=== PATIENT | female | born 1955 | race Caucasian/White ===

== ENCOUNTER 2016-05-11 04:46 | Emergency (ER) | payer OTHER ==
[~2016-05-11] VITALS: Ht 165.1 cm; Wt 50.9 kg
[~2016-05-11 04:46] MED LIST: ALBU18HF INH; ALBU2.5V4 INHALATION; FLUT12AE8 IH; suboxone
[2016-05-11 04:53] VITALS: BP 131/79; PULSE 83; RESP 16; O2SAT 99
[2016-05-11] MEDS ORDERED: Albuterol 2.5 mg/3 mL Inhalation Solution NEB ONE (05:15)
[2016-05-11] MEDS ORDERED: Albuterol-Ipratropium 3 mL Inhalation Solution NEB ONE (05:15)
[2016-05-11 05:31] VITALS: PULSE 72; RESP 18
--- NOTE | 2016-05-11 05:56 | ED.REPORT ---
HPI-General Illness Date of Service May 11, 2016 ED Provider: Ej Pires MD 60 year old female with a history of COPD and IV drug use who presents to the ER with a worsening productive cough with green/brown sputum for a few days. Pt reports intermittent SOB and palpitations for the last few months following a recent diagnosis and treatment of pneumonia. Pt reports slight fever. Pt denies vomiting and diarrhea. Pt is a IV heroin user and also complains of wounds to bilat lower extremities at injection sites. Her last use was a few hours ago. Pt has previously been clean for 3 years, but relapsed in the last year. She would like to be started on Suboxone treatment again. Nursing Notes Stated Complaint: COUGH, L LEG WOUND Chief Complaint: Respiratory Complaints Nursing Notes Reviewed: Yes Allergies: Coded Allergies: No Known Allergies (Verified Allergy, Unknown, 12/18/13) Scheduled ([suboxone]) 8 MG DAILY Buprenorphine HCl/Naloxone HCl (Suboxone 8 mg-2 mg Sl Film) 1 Each Film 2 EACH SL DAILY Fluticasone Propionate (Flovent HFA 110 mcg) 12 Gm Aer.w.adap 1 PUFF IH BID Levofloxacin (Levofloxacin) 750 Mg Tablet 750 MG PO DAILY Scheduled PRN Albuterol Neb Soln (Albuterol Neb Soln) 2.5 Mg/3 Ml Vial.neb 2.5 MG INHALATION Q4H PRN PRN For Shortness of Breath Albuterol Sulfate (Ventolin HFA Inhaler) 200 Puff/18 Gm Inhaler 2 PUFF INH Q4 PRN PRN For Wheezing General Time Seen by MD: 05:55 Chief Complaint Cough Hx Obtained From: Patient Arrived By: Walk-in Sudden in Onset?: No Onset Occurred: 2 days ago Symptom Duration: Since onset Severity: Current: No pain currently Associated with: Reports: Cough, Fever, Shortness of breath Pertinent Negative: Relieved by nothing Similar Sx Previous: Yes Past Medical History Past Medical History Notes: PCP Pamela Lim H/O IV drug use on suboxone H/O migraines Chronic Bronchitis Hep C H/O endocarditis TB Past Medical History Denies: Diabetes mellitus, Hypertension Past Surgical History Reports: Tonsillectomy Smoking History Current Every Day Smoker, Heavy Tobacco Smoker Social History Drug Use: IV drugs Ambulatory Status Independent Review of Systems Full Review of Systems Constitutional: Reports: Fever Respiratory: Reports: Prod cough, brown, Prod cough, green, Shortness of breath Cardiovascular: Reports: Palpitations GI: Denies: Abdominal pain, Vomiting Musculoskeletal: Reports: Extremity pain Skin: Reports Rash Complete sys rev & neg: except as marked. Physical Exam Vital Signs Vital Signs Date Time Temp Pulse Resp B/P Pulse Ox O2 Delivery O2 Flow Rate FiO2 05/11/16 06:48 36.4 55 18 126/60 96 Room Air 05/11/16 05:31 72 18 Room Air 05/11/16 04:53 36.3 83 16 131/79 99 Room Air Initial VS: Reviewed, Vital signs normal General/Constitutional: Well-developed, Well-nourished Head / Eyes: Atraumatic, Normocephalic, PERRL ENT: Conjunctiva normal, No scleral icterus Neck: Full range of motion Cardiovascular: Regular rate & rhythm, Heart sounds normal, Intact distal pulses Abdomen / GI: Soft, Non-tender, No guarding, No rebound, No distention Skin: Warm, Dry Neurologic: Alert, Oriented, Nonfocal Psychiatric: Mood/affect normal, Behavior normal, Normal thought content Respiratory / Chest: No respiratory distress, No rales Scattered rhonchi Lower Extremity / Pelvis / MS: Neurologic intact, Vascular intact Multiple small scattered firm erythematous follicular areas. No abscess. Interpretation & Diagnostics X-Ray Chest Interpretation View: AP & lat Interpretation / Wet Read by: Wet read ED physician NL X-Ray Chest Findings: No acute disease Re-Eval/Medical Decision Time of Eval: 06:18 Re-Evaluation/Progress Note: Discussed plan for discharge and follow up. All questions addressed. Counseled Regarding: Diagnosis, Need for follow-up, When/why to return to ED Discharge & Departure Primary Impression: Pneumonia Pneumonia type: due to unspecified organism Laterality: bilateral Lung location: lower lobe of lung Qualified Code: J18.9 - Pneumonia, unspecified organism Additional Impression: Folliculitis Disposition: Home Discharge Condition All VS Reviewed: Yes Condition: Improved Patient Instructions: Buprenorphine/Naloxone (By mouth), Community-acquired Pneumonia (ED), Folliculitis (ED) Additional Instructions: You can take Levaquin as directed for pneumonia. You were given the first dose while in the ER. You can take the second dose tomorrow morning. You can also take the Suboxone for heroin withdrawal. Do not take this today! Take this daily for 4 days starting on Friday. Call [facility] on Friday morning to schedule a follow up, . Return to the ER if worse. Referrals: Pamela Lim [facility] Scribe Attestation Portions of this note were transcribed by Betzaida Pelaez. I, (Dr. Pires) personally performed the history, physical exam and medical decision-making; I reviewed and confirmed the accuracy of the information in the transcribed note. Signed by: Betzaida Pelaez. Salbador, 05/11/2016, 0615 copies to: Pamela Lim Kirk H MD May 11, 2016 05:56 Betzaida Pelaez May 11, 2016 06:14
[2016-05-11] MEDS ORDERED: levoFLOXacin 750 mg Tablet PO ONE (06:20)
[2016-05-11] MEDS ORDERED: BUPR1FIL3 SL (06:25)
[2016-05-11] MEDS ORDERED: LEVO750T39 PO (06:25)
[2016-05-11 06:48] VITALS: BP 126/60; PULSE 55; RESP 18; O2SAT 96
--- NOTE | 2016-05-11 09:05 | DRSVH ---
PROCEDURE: X-RAY CHEST, TWO VIEWS ([id number]) INDICATIONS: cough TECHNIQUE: 2 views of the chest were acquired. COMPARISON: [facility], CR, CHEST 2VW, 05/24/2013, 17:22. FINDINGS: Surgical changes and devices: None. Lungs and pleura: No pleural effusions or pneumothorax. Lungs are clear. Lungs are hyperinflated jenkins ggesting COPD; please correlate with clinical data. Mediastinum: Mediastinal contours are normal. Heart size is normal. Bones and chest wall: No suspicious bony abnormalities. Soft tissues appear unremarkable. IMPRESSION: No acute cardiopulmonary disease process. Dictated by: Genoveva Hannon MD, PhD on 05/11/2016 at 9:03 Approved by: Genoveva Hannon MD, PhD on 05/11/2016 at 9:04
== END 2016-05-11 06:49 | disposition home or self-care (01) ==
LOC: SED 04:53
DX: J18.9 Pneumonia, unspecified organism (principal); L73.9 Follicular disorder, unspecified; F17.200 Nicotine dependence, unspecified, uncomplicated
CPT/HCPCS: 71020; 94640; 99284; J7613; J7620

== ENCOUNTER 2016-08-29 22:43 | Emergency (ER) | payer OTHER ==
[~2016-08-29] VITALS: Ht 165.1 cm; Wt 52.3 kg
[~2016-08-29 22:43] MED LIST changes: +BUPR1FIL3 SL; +LEVO750T39 PO
[2016-08-29 22:48] VITALS: BP 126/63; PULSE 71; RESP 18; O2SAT 96
--- NOTE | 2016-08-29 23:02 | ED.REPORT ---
HPI-General Illness Date of Service Aug 29, 2016 ED Provider: Jostin Scott MD Pt is a 61 y/o female w/ a hx of COPD, chronic bronchitis, every-day smoking, heroin abuse previously on Suboxone, Hep C, presenting to the ED for medical clearance to go to a drug rehab facility. The patient was checking in to a heroin rehab facility ([facility]) today and her oxygen saturation was read as 87% on room air and she was therefore sent to the ED to be medically cleared prior to treatment. Oxygen saturation at time of arrival is 96% on RA. The patient had pneumonia a couple months ago and feels like she hasn't gotten much better but also didn't finish her course of antibiotics. She also is out of all of her prescriptions. She has been using heroin for about 1 year now. Pt denies any significant dyspnea, current abscess, fever, chills, nausea, vomiting, any pain. Nursing Notes Stated Complaint: LOW OXYGEN Chief Complaint: Respiratory Complaints Nursing Notes Reviewed: Yes Allergies: Coded Allergies: No Known Allergies (Verified Allergy, Unknown, 08/29/16) Scheduled ([suboxone]) 8 MG DAILY Buprenorphine HCl/Naloxone HCl (Suboxone 8 mg-2 mg Sl Film) 1 Each Film 2 EACH SL DAILY Buprenorphine HCl/Naloxone HCl (Suboxone 8 mg-2 mg Sl Film) 1 Each Film 1 EACH SL DAILY Fluticasone Propionate (Flovent HFA 110 mcg) 12 Gm Aer.w.adap 1 PUFF IH BID Fluticasone Propionate (Flovent HFA 110 mcg) 12 Gm Aer.w.adap 1 PUFF IH BID Levofloxacin (Levofloxacin) 750 Mg Tablet 750 MG PO DAILY Prednisone (PredniSONE) 20 Mg Tablet 20 MG PO TID Scheduled PRN Albuterol Neb Soln (Albuterol Neb Soln) 2.5 Mg/3 Ml Vial.neb 2.5 MG INHALATION Q4H PRN PRN For Shortness of Breath Albuterol Sulfate (Ventolin HFA Inhaler) 200 Puff/18 Gm Inhaler 2 PUFF INH Q4 PRN PRN For Wheezing General Time Seen by MD: 23:00 Chief Complaint Other (clearance) Hx Obtained From: Patient Arrived By: Walk-in Sudden in Onset?: No Onset Occurred: Onset unknown Symptom Duration: Since onset Severity: Current: No pain currently Severity: Maximum: No pain Similar Sx Previous: Yes Past Medical History Past Medical History Notes: PCP Pamela Lim Past Medical History Hx TB (treated with INH in 2006) Hepatitis C Hepatitis B Hx migraines Hx endocarditis COPD Chronic bronchitis Chronic cough Anxiety Depression Heroin abuse previously on suboxone Past Surgical History Tonsillectomy Colonoscopy Smoking History Current Every Day Smoker, Heavy Tobacco Smoker Social History IV heroin abuse previously on Suboxone Alcohol Use: Denies alcohol use Drug Use: IV drugs Ambulatory Status Independent Review of Systems Full Review of Systems Constitutional: Denies: Chills, Fever Respiratory: Denies: Non-productive cough, Shortness of breath Cardiovascular: Denies: Chest pain, Dyspnea on exertion GI: Denies: Abdominal pain, Nausea, Vomiting Complete sys rev & neg: except as marked. Physical Exam Vital Signs Vital Signs Date Time Temp Pulse Resp B/P Pulse Ox O2 Delivery O2 Flow Rate FiO2 08/30/16 02:13 36.7 84 16 99/60 92 Room Air 08/30/16 01:16 84 18 89 Room Air 08/29/16 23:27 77 20 95 Room Air 08/29/16 22:48 36.7 71 18 126/63 96 Room Air Initial VS: Reviewed, Vital signs normal Head / Eyes: Atraumatic, Normocephalic, PERRL ENT: Mucous membranes moist, Conjunctiva normal, No scleral icterus Neck: Supple, Full range of motion Cardiovascular: Regular rate & rhythm, Heart sounds normal, Intact distal pulses Abdomen / GI: Soft, No distention Skin: Warm, Dry, No cyanosis Neurologic: Alert, Oriented, Nonfocal Psychiatric: Mood/affect normal, Behavior normal, Normal thought content General/Constitutional: Awake, Alert, No acute distress, Cooperative, Not toxic appearing Neck: Full range of motion, No JVD Respiratory / Chest: Breath sounds = bilat, No retractions Resp Distress / Stridor: Positive: Resp distress mild Inspiratory and expiratory wheezes throughout all lung ponce without focal changes. Upper Extremities Upper Extremity / MS: No erythema, No deformity, Neurologic intact, Vascular intact Tender area over right deltoid from injecting without overt evidence of infection Interpretation & Diagnostics ECG Interpretation ECG Interpretation: Sinus rhythm rate 66 Probable LAE LAD Abnormal R-wave progression, early transition Time: 00:11 Interpreted by: ED physician Normal ECG Interpretation: No acute ischemic changes X-Ray Chest Interpretation Chest Xray Interpretation: COPD No acute disease View: Portable, AP & lat Interpretation / Wet Read by: Jermaine read ED physician Re-Eval/Medical Decision Med Decision/Clinical Course 61-year-old long female long-term heroin user previously under my care for outpatient Suboxone treatment. She relapsed about a year ago on heroin. She is now in route to detox and was found to have low O2 saturations so she was sent here for evaluation. She definitely has wheezing and respiratory distress. This responded nicely to nebulizer and steroid treatment. There is no evidence of pneumonia. She is being discharged back to [facility] for residential treatment there with inhalers, prednisone, and prescription for Suboxone. Time of Eval: 00:55 Re-Evaluation/Progress Note: Pt rechecked. Still wheezing, will order another neb treatment. Time of Eval: 02:05 Re-Evaluation/Progress Note: Pt rechecked. Doing better. Medically cleared. Informed pt of plan for treatment. Pt understands and agrees with plan for treatment. F/U instructions and RTER warnings given. All questions addressed. Counseled Regarding: Diagnosis, Need for follow-up, When/why to return to ED Discharge & Departure Primary Impression: Acute exacerbation of chronic obstructive pulmonary disease (COPD) Additional Impression: Opioid dependence with withdrawal Disposition: Home (rehab facility) Discharge Condition All VS Reviewed: Yes Condition: Stable Patient Instructions: Buprenorphine/Naloxone (Into the mouth), COPD (Chronic Obstructive Pulmonary Disease) (ED) Additional Instructions: Go back to [facility] for detox. Albuterol inhaler every 2-4 hours as needed, #1 dispensed. Flovent inhaler 2 puffs twice daily, #1 prescription sent. Prednisone 20 mg by mouth given in the emergency room to be followed by 20 mg 3 times a day for 5 days, #15 prescription sent. Antibiotics would not be helpful. Suboxone 8/2, one dissolved orally daily, #7 prescription sent. Schedule to see Dr. Scott at [facility] on Friday or of next week by calling [phone], the primary access line. Referrals: INGA FLANNERY MD (PCP) Scribe Attestation Portions of this note were transcribed by Samuel Camarena. I, Dr. Scott personally performed the history, physical exam and medical decision-making; I reviewed and confirmed the accuracy of the information in the transcribed note. Signed by Salbador Serrano, 08/29/16 - [id number] copies to: INGA FLANNERY MD, Howard L MD Aug 29, 2016 23:02 SAMUEL CAMARENA Aug 29, 2016 23:09
[2016-08-29] MEDS ORDERED: Albuterol 2.5 mg/3 mL Inhalation Solution NEB ONE (23:20)
[2016-08-29] MEDS ORDERED: Albuterol-Ipratropium 3 mL Inhalation Solution NEB ONE (23:20)
[2016-08-29 23:27] VITALS: PULSE 77; RESP 20; O2SAT 95
[2016-08-30] MEDS ORDERED: Albuterol HFA 200 Puff Inhaler (Vent Pts Only) INHALATION PRN (00:50)
[2016-08-30] MEDS ORDERED: FLUT12AE8 IH (00:53)
[2016-08-30] MEDS ORDERED: PRE20 PO (00:56)
[2016-08-30] MEDS ORDERED: BUPR1FIL3 SL (01:09)
[2016-08-30] MEDS ORDERED: predniSONE 20 mg Tablet PO ONE (01:10)
[2016-08-30] MEDS ORDERED: Albuterol 2.5 mg/3 mL Inhalation Solution NEB ONE (01:10)
[2016-08-30 01:16] VITALS: PULSE 84; RESP 18; O2SAT 89
[2016-08-30 02:13] VITALS: BP 99/60; PULSE 84; RESP 16; O2SAT 92
--- NOTE | 2016-08-30 08:52 | DRSVH ---
PROCEDURE: X-RAY CHEST, TWO VIEWS ([id number]) INDICATIONS: dyspnea TECHNIQUE: 2 views of the chest were acquired. COMPARISON: [facility], CR, XR CHEST 2VW, 05/11/2016, 5:58. FINDINGS: Surgical changes and devices: None. Lungs and pleura: No pleural effusions or pneumothorax. Lungs are clear. Lung volumes are increase d with flattening of the hemidiaphragms suggesting COPD. Mediastinum: Mediastinal contours are normal. Heart size is normal. Bones and chest wall: No suspicious bony abnormalities. Soft tissues appear unremarkable. IMPRESSION: Large lung volumes suggesting COPD. No acute cardiopulmonary process. Dictated by: Pedro Cuevas Bola Interpreted: Brooke Childers MD on 08/30/2016 at 8:48 Transcribed by: GAGANDEEP on 08/30/2016 at 8:52 Approved by: Brooke Childers M.D. on 08/30/2016 at 11:39
== END 2016-08-30 02:05 | disposition home or self-care (01) ==
LOC: SED 22:43
DX: J44.1 Chronic obstructive pulmonary disease with (acute) exacerbation (principal); F11.20 Opioid dependence, uncomplicated; F17.210 Nicotine dependence, cigarettes, uncomplicated; F41.9 Anxiety disorder, unspecified; Z86.11 Personal history of tuberculosis; Z86.19 Personal history of other infectious and parasitic diseases; Z79.51 Long term (current) use of inhaled steroids; Z79.52 Long term (current) use of systemic steroids
CPT/HCPCS: 71020; 93005; 94640; 94664; 99285; J7613; J7620